=== PATIENT | male | born 1965 ===

== ENCOUNTER 2016-09-05 07:37 | Inpatient (IN) | payer OTHER ==
[2016-09-05 07:48] VITALS: BMI 40.3
[2016-09-05] MEDS ORDERED: Sodium Chloride 0.9% 1,000 ML IV STA (08:04)
--- NOTE | 2016-09-05 08:07 | ED PDOC ---
HPI:STROKE - Time Time: 08:00 - Historian Historian: Patient - Chief Complaint Chief Complaint: Weakness, Numbness (right sided face), Difficulty walking, other (vertigo) - Onset Onset: Days (Sunday) - Timing Timing: Constant - Severity of pain Maximum severity:: Mild Severity Current: Mild - Associated Symptoms Associated symptoms:: Numbness (right sided face) - Notes: Notes:: Patient is a 51 year old male presenting to the ED complaining of vertigo x2 day. Patient reports that he feels like the room is spinning. Vertigo is associated with weakness diffuse, loss of balance, nausea, right sided facial numbness, leg leg pain, and left arm pain. Last known well was 2 nights ago. Denies chest pain, vomiting, and abdominal pain. No headache. NIHSS Stroke Scale - Date/Time Evaluation Performed Date Performed: 09/05/16 Time Performed: 08:00 When Was NIHSS Performed: Baseline - How Severe is the Stroke Level of Consciousness: 0=Alert LOC to Questions: 0=Both comments correct LOC to commands: 0=Obeys both correctly Best Gaze: 0=Normal Visual: 0=No visual loss Facial: 0=Normal Motor Arm - Left: 0=No drift Motor Arm - Right: 0=No drift Motor Leg - Left: 0=No drift Motor Leg - Right: 0=No drift Limb Ataxia: 0=Absent Sensory: 0=Normal Best Language: 0=No aphasia Dysarthia: 0=Normal articulation Extinction & Inattention (Neglect): 0=Normal, no object Score: 0 rTPA Inclusion/Exclusion - Refusal of Treatment Patient Refused Treatment: No - Inclusion Criteria for Altepase Patient is 18 years or Older: Yes The Clinical Diagnosis of Ischemic Stroke That is Causing a Potentially Disabling Neurological Deficit: No Time of Onset is Well Established to be Less Than 270 Minute Before Treatment Would Begin: No Risk/Benefit Discussed With Patient/Family Member Present: Yes Past Medical History Reviewed: Historical Data, Nursing Documentation, Vital Signs Vital Signs: Last Vital Signs Temp 98 F 09/05/16 07:47 Pulse 86 09/05/16 07:47 Resp BP 181/102 H 09/05/16 07:47 Pulse Ox 99 09/05/16 07:47 - Medical History PMH: Diabetes, HTN, Hyperlipidemia - Family History Family History: States: Unknown Family Hx - Allergies Allergies/Adverse Reactions: Allergies Allergy/AdvReac Type Severity Reaction Status Date / Time No Known Allergies Allergy Verified 09/05/16 07:56 Review of Systems ROS Statement: Except As Marked, All Systems Reviewed And Found Negative Constitutional: Positive for: Weakness, Other (loss of balance) Cardiovascular: Negative for: Chest Pain Gastrointestinal: Positive for: Nausea. Negative for: Vomiting, Abdominal Pain Neurological: Positive for: Weakness, Numbness (right sided facial ), Dizziness , Other (vertigo) Physical Exam - Reviewed Nursing Documentation Reviewed: Yes Vital Signs Reviewed: Yes - Physical Exam Appears: Positive for: Well, Non-toxic, No Acute Distress Head Exam: Positive for: ATRAUMATIC, NORMAL INSPECTION, NORMOCEPHALIC Skin: Positive for: Normal Color, Warm, DRY Eye Exam: Positive for: EOMI, Normal appearance, PERRL ENT: Positive for: Normal ENT Inspection. Negative for: Nasal Congestion Neck: Positive for: Normal, Painless ROM, Supple Cardiovascular/Chest: Positive for: Regular Rate, Rhythm. Negative for: Edema, Gallop, Murmur Respiratory: Positive for: Normal Breath Sounds. Negative for: Accessory Muscle Use, Rhonchi, Respiratory Distress Gastrointestinal/Abdominal: Positive for: Bowel Sounds, Soft. Negative for: Tenderness Back: Positive for: Normal Inspection. Negative for: L CVA Tenderness, R CVA Tenderness Extremity: Positive for: Normal ROM. Negative for: Tenderness, Pedal Edema Neurologic/Psych: Positive for: Alert, circular ripsaw operator II-XII (intact), Oriented, Facial Droop (none). Negative for: Motor/Sensory Deficits, Aphasia - Laboratory Results Result Diagrams: 09/05/16 08:21 09/05/16 08:21 Interpretation Of Abn Labs: 335 glucose - ECG ECG: Positive for: Interpreted By Me, Viewed By Me ECG Rhythm: Positive for: Nonspecific Changes O2 Sat by Pulse Oximetry: 99 (RA) Pulse Ox Interpretation: Normal - Radiology X-Ray: Interpreted by Me, Viewed By Me X-Ray Interpretation: No Acute Disease - CT Scan/US ct Other Rad Studies (CT/US): Read By Radiologist Other Rad Interpretation: no acute - Progress ED Course And Treament: 1130: Stable. AAOx3. Pain free. 1214: Spoke with Dr. Pablo will will admit. Spoke with Dr. Mcclain. Will Consult. No additional tx then ASA. Further stroke eval needed. Medical Decision Making Medical Decision Making: Time: 8:00 Impression: possible stroke/CVA Plan: Blood Type and Screen CT Head EKG CMP Hemoglobin A1C stat Lipid Panel Troponin CBC PTT/PT CXR Antivert 25 mg PO IVF Glucose POC Stat Scribe Attestation: Documented by William Suero acting as a scribe for Abhinav French MD. Scribe Attestation: All medical record entries made by the Scribe were at my direction and personally dictated by me. I have reviewed the chart and agree that the record accurately reflects my personal performance of the history, physical exam, medical decision making, and the department course for this patient. I have also personally directed, reviewed, and agree with the discharge instructions and disposition. Disposition - Clinical Impression Clinical Impression: Cerebrovascular accident (CVA), Hyperglycemia - Patient ED Disposition Is Patient to be Admitted: Yes Counseled Patient/Family Regarding: Studies Performed, Diagnosis - Disposition Disposition Time: 12:15 Condition: FAIR - Pt Status Changed To: Hospital Disposition Of: Observation - POA Present On Arrival: Poor Glycemic Control
[2016-09-05 08:30] LABS: BASO % 0.5 % (0.0-2.0); EOS % 0.1 % (0.0-4.0); HEMATOCRIT 43.8 % (35.0-51.0); LYMPH # 1.1 K/uL (1.0-4.3); LYMPH % 12.9 % (20.0-40.0); MEAN CELL VOLUME 87.8 fl (80.0-94.0); MEAN CORPUSCULAR HEMOGLOBIN 28.8 pg (27.0-31.0); MEAN CORPUSCULAR HGB CONC 32.8 g/dL (33.0-37.0); MEAN PLATELET VOLUME 9.7 fl (7.2-11.7); MONO # 0.4 K/uL (0.0-0.8); MONO % 4.4 % (0.0-10.0); NEUT # 6.8 K/uL (1.8-7.0); NEUT % 82.1 % (50.0-75.0); NRBC % 0.1 % (0.0-0.0); RED CELL DISTRIBUTION WIDTH 13.7 % (11.5-14.5); WHITE BLOOD COUNT 8.2 K/uL (4.8-10.8)
[2016-09-05 08:36] LABS: ALB/GLOB RATIO 1.3 (1.0-2.1); ALKALINE PHOSPHATASE 121 U/L (38-126); ALT/SGPT 77 U/L (21-72); AST/SGOT 52 U/L (17-59); BILIRUBIN,TOTAL 1.2 mg/dl (0.2-1.3); BLOOD UREA NITROGEN 18 mg/dl (9-20); CALCIUM 9.3 mg/dL (8.4-10.2); CARBON DIOXIDE 20 mmol/L (22-30); CHLORIDE 104 mmol/L (98-107); CHOLESTEROL 224 mg/dL (0-199); GFR AFRICAN-AMERICAN > 60; GLUCOSE,RANDOM 335 mg/dL (75-110); SODIUM 141 mmol/l (132-148); TOTAL PROTEIN 8.1 G/DL (6.3-8.2)
[2016-09-05 08:55] LABS: PARTIAL THROMBOPLASTIN TIME 23.1 SECONDS (23.3-32.5); POTASSIUM 4.4 MMOL/L (3.6-5.0)
--- NOTE | 2016-09-05 09:04 | CT ---
PROCEDURE: CT HEAD WITHOUT CONTRAST. HISTORY: cva eval COMPARISON: None available. TECHNIQUE: Axial computed tomography images were obtained through the head/brain without intravenous contrast. Radiation dose: Total exam DLP = 779.46 mGy-cm. FINDINGS: HEMORRHAGE: No intracranial hemorrhage. BRAIN: No mass effect or edema. Minimal diffuse atrophy consistent with patient age. No evidence of acute infarct. No evidence of chronic white matter ischemic change. Incidental flattening of the pituitary along the floor of the sella turcica, so-called "Empty sella ". VENTRICLES: Incidental cavum septum pellucidum. No ventriculomegaly. CALVARIUM: Unremarkable. PARANASAL SINUSES: Unremarkable as visualized. No significant inflammatory changes. MASTOID AIR CELLS: Unremarkable as visualized. No inflammatory changes. OTHER FINDINGS: None. IMPRESSION: No evidence of acute infarct. No intracranial mass or hemorrhage.
--- NOTE | 2016-09-05 13:55 | RAD ---
HISTORY: cva eval COMPARISON: None available. TECHNIQUE: Chest, one view. FINDINGS: LUNGS: No focal consolidation. Please note that chest x-ray has limited sensitivity for the detection of pulmonary masses. PLEURA: No significant pleural effusion identified. No definite pneumothorax . CARDIOVASCULAR: Cardiomegaly. OSSEOUS STRUCTURES: Degenerative changes. VISUALIZED UPPER ABDOMEN: Unremarkable. OTHER FINDINGS: Examination limited by habitus. IMPRESSION: Cardiomegaly.
--- NOTE | 2016-09-05 13:59 | CP.PCM.HP ---
History of Present Illness - History of Present Illness History of Present Illness: 51 y/o male with PMH HTN, dyslipidemia, DM type presented to ER with 1 day history of dizziness, spinning sensation and unsteady gait. He states that this is the first time he is experiencing such dizziness. As per patient first it started yesterday morning upon waking up and trying to get out of bed and continued all day yesterday until this morning so he decided to come to ER. Feeling nauseated , denies any vomiting, fever, chills, recent upper respiratory infection, complains of right nares congestion, denies any tinnitus.Denies any CP, palpitation, SOB, BAXTER. Denies any focal weakness but feels like can not stand on his feet due to dizziness. Allergies:NKDA PMH ; HTN,dyslipidemia, DM Medications; can not remember his medications Surgery; spinal surgery for herniated disc 10 years ago Family history : Mother DM , HTN, Dyslipidemia Social history ; Lives in [place] , from [place] , , works in construction, denies any smoking , ETOH , drug abuse PMD ; Dr. Thomas, [facility];all other review of systems is negative except above Present on Admission - Present on Admission Any Indicators Present on Admission: No Review of Systems - Review of Systems All systems: reviewed and no additional remarkable complaints except Past Patient History - Infectious Disease Hx of Infectious Diseases: None - Tetanus Immunizations Tetanus Immunization: Unknown - Past Medical History & Family History Past Medical History?: Yes Past Family History: Reviewed and not pertinent - Past Social History Smoking Status: Never Smoked Chewing Tobacco Use: No Cigar Use: No Alcohol: None Drugs: Denies Home Situation {Lives}: Alone Domestic Violence: Negative - CARDIAC Hx Hypertension: Yes - HEENT Hx Cataracts: Yes (right eye) - ENDOCRINE/METABOLIC Hx Diabetes Mellitus Type 2: Yes Other/Comment: dyslipidemia - HEMATOLOGICAL/ONCOLOGICAL Hx Blood Disorders: No - INTEGUMENTARY Hx Dermatological Problems: No - MUSCULOSKELETAL/RHEUMATOLOGICAL Hx Musculoskeletal Disorders: No - GASTROINTESTINAL Hx Gastrointestinal Disorders: No - GENITOURINARY/GYNECOLOGICAL Hx Genitourinary Disorders: No - PSYCHIATRIC Hx Psychophysiologic Disorder: No - SURGICAL HISTORY Hx Surgeries: Yes Other/Comment: back surgery Meds Allergies/Adverse Reactions: Allergies Allergy/AdvReac Type Severity Reaction Status Date / Time No Known Allergies Allergy Verified 09/05/16 07:56 Physical Exam - Constitutional Appears: Non-toxic, No Acute Distress, Other (obese) - Head Exam Head Exam: ATRAUMATIC, NORMAL INSPECTION, NORMOCEPHALIC - Eye Exam Eye Exam: PERRL Pupil Exam: NORMAL ACCOMODATION Additional comments: right eye cataract - ENT Exam ENT Exam: Mucous Membranes Moist, Normal Exam - Neck Exam Neck exam: Positive for: Full Rom, Normal Inspection - Respiratory Exam Respiratory Exam: Clear to Auscultation Bilateral, NORMAL BREATHING PATTERN. absent: Rales, Rhonchi, Wheezes - Cardiovascular Exam Cardiovascular Exam: REGULAR RHYTHM, RRR, +S1, +S2. absent: JVD - GI/Abdominal Exam GI & Abdominal Exam: Normal Bowel Sounds, Soft. absent: Distended, Guarding, Rebound, Tenderness - Rectal Exam Rectal Exam: Deferred - Extremities Exam Extremities exam: Positive for: normal capillary refill, normal inspection, pedal pulses present. Negative for: calf tenderness, pedal edema - Back Exam Back exam: NORMAL INSPECTION - Neurological Exam Neurological exam: Alert, CN II-XII Intact, Oriented x3, Reflexes Normal - Psychiatric Exam Psychiatric exam: Normal Affect, Normal Mood - Skin Skin Exam: Dry, Intact, Normal Color, Warm Results - Vital Signs Recent Vital Signs: Last Vital Signs Temp 98 F 09/05/16 07:47 Pulse 86 09/05/16 07:47 Resp BP 181/102 H 09/05/16 07:47 Pulse Ox 99 09/05/16 12:15 - Labs Result Diagrams: 09/05/16 08:21 09/05/16 08:21 - Imaging and Cardiology CT scan - head Additional comment: no acute pathology cxr Additional comment: no acute pathology Assessment & Plan - Assessment and Plan (Free Text) Assessment: 51 y/o male with PMH HTN, dyslipidemia, DM type presented to ER with 1 day history of dizziness, spinning sensation and unsteady gait. He states that this is the first time he is experiencing such dizziness. As per patient first it started yesterday morning upon waking up and trying to get out of bed and continued all day yesterday until this morning so he decided to come to ER. Feeling nauseated , denies any vomiting, fever, chills, recent upper respiratory infection, complains of right nares congestion, denies any tinnitus.Denies any CP, palpitation, SOB, BAXTER. Denies any focal weakness but feels like can not stand on his feet due to dizziness.Ctr heda showed no acute pathology and his symptoms improved after meclizine given Will place patient under observation in telemetry for Vertigo 1.Vertigo- most likely benign positional vertigo , But will need to rule out acute CVA Place in telemetry for observation tele monitoring Neuro checks Q4 hours neurology consult with Dr. Johny Orozco ASa, statin Better control of hypertension and DM Start Meclezine 12.5 mg po BID MRI brain as per neuro 2.Hypertension- uncontrolled resume home meds norvasc and Losartan 3.Dyslipidemia- uncontrolled TG 335 , Ch 224 LDL 106 Star atorvastatin 40 mg po daily 4.DM type II- uncontrolled Accucheck 335 Resoume home meds Amaryl and Metformin accucjhecks with insulin coverage Check Hgb A1c Diabetic diet 5. Obesity BMI 40 will need drafter castings consult 6. DVT prophylaxis Lovenox, SCD
--- NOTE | 2016-09-05 14:26 | CARD ---
APPROVED REPORT EKG Measurement Heart [id number] NE 144P43 [id number] <Conclusion> Normal sinus rhythm ST & T wave abnormality, consider anterolateral ischemia Abnormal ECG
[2016-09-05 14:39] LABS: THYROID STIMULATING HORMONE 0.65 mIU/ML (0.46-4.68)
--- NOTE | 2016-09-05 16:56 | MRI ---
PROCEDURE: MRI BRAIN WITHOUT CONTRAST HISTORY: stroke COMPARISON: Comparison made with CT scan of the brain dated 09/05/2016. TECHNIQUE: Multiplanar, multisequence MR images of the brain were obtained without intravenous contrast enhancement. FINDINGS: HEMORRHAGE: No acute parenchymal, subarachnoid or extra-axial hemorrhage. No evidence of hemosiderin deposition seen on diffusion-weighted sequence. DWI: There is a very tiny elliptical shaped focus of restricted diffusion along the right lateral surface of the cervicomedullary junction best seen on diffusion weighted series 3 axial image number 6 consistent with a tiny acute infarct. Clinical correlation recommended. BRAIN PARENCHYMA: There appears to be some minimal chronic periventricular white matter ischemic changes with a few tiny chronic lacunar-type infarcts scattered about the deep and subcortical white matter both cerebral hemispheres. VENTRICLES: Ventricular and sulcal size are normal. No evidence hydrocephalus. Incidental note again made of septum cavum pellucidum and vergae CRANIUM: Calvarium is unremarkable. ORBITS: Orbits and contents normal. PARANASAL SINUSES/MASTOIDS: Clear VASCULAR SYSTEM: Visualized major vascular flow voids at skull base are patent. OTHER FINDINGS: None. IMPRESSION: There is very tiny acute infarct along the right lateral surface of the cervicomedullary junction as described. No evidence of acute intracranial hemorrhage. Findings discussed with Dr. French approximately 4:54 p.m. with written down and read back verification.
[2016-09-05] MEDS ORDERED: Pneumococcal 23-Valent Vaccine IM ONE (17:38)
[2016-09-05] MEDS ORDERED: Influenza Vaccine(5yr & older) 0.5 ML/45 MCG IM ONE (17:38)
[2016-09-05] MEDS: Insulin Lispro (humaLOG) 100 Units/ml Inj SC SCH ×2 (17:49→22:01)
[2016-09-05 18:17] LABS: FOLATE 16.5 ng/mL
--- NOTE | 2016-09-05 20:38 | CON ---
DATE: 09/05/2016 REASON FOR THE CONSULTATION: Left-sided weakness. CHIEF COMPLAINT: The patient was brought in to [facility] with a history of more th an 24-hour period of dizziness and leg weakness, more on his left side. No similar episodes had happ ened. From neurological point of view, I was called in to evaluate him for further management. 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 Known history of hypertension, diabetes mellitus, and dyslipide xavier, woke up with spinning head. This episode not associating with nausea or vomiting. However, he admits to losing his balance, mostly on his left than his right side. From the history, he stated th at right-sided facial numbness. This episode was persistent; that decided him to come to the [facility] for further evaluation. PAST MEDICAL HISTORY: As stated above. PERSONAL HISTORY: Denies smoking or alcohol use. ALLERGIES: No known allergies. MEDICATIONS: Aspirin, Cozaar, Glucophage, Glucotrol, insulin, Lovenox, Norvasc, Tylenol p.r.n. VITAL SIGNS: Blood pressure 142/85, mean arterial pressure of 104, respiratory rate 16, temperature afebrile. NECK: Supple. No carotid bruit. HEART SOUNDS: Regular. CHEST: Fair air entry. EXTREMITIES: No edema in legs. Legs are not externally rotated. NEUROLOGICAL EXAMINATION: MENTAL STATE EXAMINATION: The patient is awake, alert, oriented to person, place, and time. Speech is clear. Naming, repetition, fluency, comprehension are normal. No right and left confusion. CRANIAL NERVE EXAMINATION: Visual field intact. Pupils reactive to light, extraocular movement norm al, no nystagmus. No facial sensory deficit, no facial asymmetry. Hearing is normal. Tongue is mid line. Good gag. MOTOR EXAMINATION: Outstretched hands with eyes closed, no drift noted. Power is symmetric on eithe r side. DEEP TENDON REFLEXES: Biceps, brachioradialis, triceps 1+, both knees are absent, both ankles are ab sent. Plantars are downgoing. SENSORY EXAMINATION: Grossly intact, mild sensory motor neuropathy. COORDINATION: [place]-pcgz-[id number] test is intact. GAIT: Romberg exam negative. Tandem is poor, leaning to his right side. Tandem is poor. CONCLUSION: The patient is presenting with subacute process of lower brainstem dysfunction manifesti ng with a toxic hemiparesis affecting his left than his right side, with the preceding symptoms of ve rtigo consistent with a posterior cerebral artery dysfunction. He carries a history of diabetes raphael itus, dyslipidemia, and hypertension, and his obesity, all are the risk factors for his possible stro ke process. WORKUP: CT of the head reviewed by me: No acute pathologies noted. MRI of the brain reviewed showe d diffusion-weighted image restriction noted at right cervicomedullary junction. He also shows some small vessel disease which is chronic in nature. EKG: Normal sinus rhythm. BLOOD WORKUP: WBC 8.2, hemoglobin 14.4, hematocrit 43.8, platelet 200. ESR 16. PT 10.3, INR of 0.9 9, PTT 23.1. Sodium 141, potassium 4.4, chloride 104, bicarbonate 20, BUN 18, creatinine 0.4. GFR m ore than 60. Glucose 335. Cholesterol 224, LDL 106, HDL 44. B12 is 375. TSH is 0.65. Folate is p ending. RECOMMENDATIONS: 1. Carotid Doppler to be done, echocardiogram to be done to rule out cardiogenic source. 2. The patient got to be out of the bed, and physical therapy should be started as early as possible. 3. Weight reduction, blood pressure control, and diabetic control been all discussed with the patient . The patient should have polysomnogram to rule out hidden sleep-related breathing disorder. If so, th at has to be treated appropriately. Extended discussion with him through the ice cream server. The patient will be followed closely while he is in the hospital. Shivam Mcclain MD cc: [id number] TT: 09/05/2016 20:37:26 Confirmation # [id number] Dictation # [id number] jn
[2016-09-06] MEDS: Insulin Lispro (humaLOG) 100 Units/ml Inj SC SCH ×4 (06:30→21:02)
[2016-09-06 08:19] LABS: HEMATOCRIT 41.2 % (35.0-51.0); MEAN CELL VOLUME 87.4 fl (80.0-94.0); MEAN CORPUSCULAR HEMOGLOBIN 28.8 pg (27.0-31.0); RED CELL DISTRIBUTION WIDTH 13.5 % (11.5-14.5); WHITE BLOOD COUNT 6.6 K/uL (4.8-10.8)
[2016-09-06 08:37] LABS: BLOOD UREA NITROGEN 14 mg/dl (9-20); CALCIUM 8.6 mg/dL (8.4-10.2); CARBON DIOXIDE 21 mmol/L (22-30); CHLORIDE 104 mmol/L (98-107); GFR AFRICAN-AMERICAN > 60; GLUCOSE,RANDOM 225 mg/dL (75-110); POTASSIUM 3.9 MMOL/L (3.6-5.0); SODIUM 134 mmol/l (132-148)
[2016-09-06] MEDS: GlipiZIDE 10 mg SR Tab PO SCH ×2 (09:33→17:24)
[2016-09-06] MEDS: Enoxaparin 40 mg Syringe SC SCH (09:34)
[2016-09-06] MEDS: Pantoprazole 40 mg EC Tab PO SCH (09:35)
--- NOTE | 2016-09-06 14:23 | CP.PCM.PN ---
Subjective - Date & Time of Evaluation Date of Evaluation: 09/06/16 Time of Evaluation: 11:00 - Subjective Subjective: Pt seen and examined. Denied having vertigo or dizziness but complained of numbness of the right face. No perceptible facial weakness. Objective - Vital Signs/Intake and Output Vital Signs (last 24 hours): Temp Pulse Resp BP Pulse Ox 97.9 F 78 18 157/99 H 99 09/06/16 12:00 09/06/16 12:00 09/06/16 12:00 09/06/16 12:00 09/06/16 12:00 - Medications Medications: Current Medications Acetaminophen (Tylenol 325mg Tab) 650 mg PO Q6 PRN PRN Reason: Pain, Mild (1-3) Acetaminophen (Tylenol 325mg Tab) 650 mg PO Q6 PRN PRN Reason: Fever >100.4 F Amlodipine Besylate (Norvasc) 10 mg PO DAILY [facility] Last Admin: 09/06/16 09:35 Dose: 10 mg Aspirin (Aspirin Chewable) 81 mg PO DAILY [facility] Last Admin: 09/06/16 09:27 Dose: 81 mg Atorvastatin Calcium (Lipitor) 40 mg PO DAILY [facility] Last Admin: 09/06/16 09:34 Dose: 40 mg Clopidogrel Bisulfate (Plavix) 75 mg PO DAILY [facility] Last Admin: 09/06/16 09:35 Dose: 75 mg Enoxaparin Sodium (Lovenox) 40 mg SC DAILY [facility] PRN Reason: Protocol Last Admin: 09/06/16 09:34 Dose: 40 mg Glipizide (Glucotrol Xl) 10 mg PO BIDWM [facility] Last Admin: 09/06/16 09:33 Dose: 10 mg Insulin Human Lispro (Humalog) 0 units SC [facility] PRN Reason: Protocol Last Admin: 09/06/16 06:30 Dose: 4 units Ketorolac Tromethamine (Toradol) 15 mg IVP Q6 PRN PRN Reason: Pain, moderate (4-7) Ketorolac Tromethamine (Toradol) 30 mg IVP Q6 PRN PRN Reason: Pain, severe (8-10) Last Admin: 09/05/16 18:50 Dose: 30 mg Losartan Potassium (Cozaar) 100 mg PO DAILY [facility] Last Admin: 09/06/16 09:29 Dose: 100 mg Meclizine HCl (Antivert) 12.5 mg PO BID [facility] Last Admin: 09/06/16 09:27 Dose: 12.5 mg Metformin HCl (Glucophage) 1,000 mg PO BID [facility] Last Admin: 09/06/16 09:32 Dose: 1,000 mg Ondansetron HCl (Zofran Inj) 4 mg IVP Q6 PRN PRN Reason: Nausea/Vomiting Pantoprazole Sodium (Protonix Ec Tab) 40 mg PO DAILY [facility] Last Admin: 09/06/16 09:35 Dose: 40 mg - Labs Labs: 09/06/16 07:30 09/06/16 07:30 PT 10.3 SECONDS (9.6-11.2) 09/05/16 08:21 INR 0.99 (0.92-1.08) 09/05/16 08:21 APTT 23.1 SECONDS (23.3-32.5) L 09/05/16 08:21 - Constitutional Appears: No Acute Distress - Head Exam Head Exam: ATRAUMATIC - Eye Exam Eye Exam: PERRL - ENT Exam ENT Exam: Mucous Membranes Moist - Neck Exam Neck Exam: absent: Meningismus - Respiratory Exam Respiratory Exam: absent: Rhonchi, Wheezes, Respiratory Distress - Cardiovascular Exam Cardiovascular Exam: REGULAR RHYTHM, +S1, +S2 - GI/Abdominal Exam GI & Abdominal Exam: Soft. absent: Tenderness - Rectal Exam Rectal Exam: Deferred - Neurological Exam Neurological Exam: Alert, Oriented x3 - Psychiatric Exam Psychiatric exam: Normal Affect - Skin Skin Exam: Dry, Intact Assessment and Plan (1) CVA (cerebral vascular accident) Status: Acute (2) Vertigo Status: Resolved (3) HTN (hypertension) Status: Chronic (4) HLD (hyperlipidemia) Status: Chronic (5) DM2 (diabetes mellitus, type 2) Status: Chronic (6) DVT prophylaxis Status: Acute - Assessment and Plan (Free Text) Assessment: 51 yo male with history of HTN, HLD, DM type 2 admitted because of dizziness and unsteady gait. MRI of the brain showed acute infarct of the right lateral cervicomedullary junction. 1. CVA vertigo was relieved but now has numbness of the right side of the face follow ECHO and Carotid Doppler switch to full admission continue ASA, Plavix, Lipitor and BP control Dr Mcclain on neuro consult 2. Hypertension BP uncontrolled continue Norvasc and Losartan 3. HLD Atorvastatin 40 mg PO HS 4. DM type II BS uncontrolled continue Amaryl and Metformin accuchecks with insulin coverage 6. DVT prophylaxis Lovenox, SCD
--- NOTE | 2016-09-06 18:28 | PN ---
DATE: 09/06/2016 NEUROLOGICAL PROBLEM: Ataxic hemiparesis with acute infarction over the right cervical medullary piyush ction, probably small vessel disease. VITAL SIGNS: Blood pressure 154/91, mean arterial pressure of 112, respiratory rate 20, temperature 98.4, pulse rate 77. The patient is more awake, alert, oriented to person, place, and time. He denies any new weakness, h owever, he is still complaining of losing his balance in his both legs. His workup is completed. I would like to review his echo. 1. The patient should get physical therapy. He is a good candidate for acute rehabilitation. 2. Medications should be continued for his blood pressure, maintain the mean arterial pressure aroun d 100. 3. Diabetic control. 4. Antiplatelets and statin should be continued. The patient should have polysomnogram to rule out sleep-related breathing disorder, which can be done as outpatient. Shivam Mcclain MD cc: [id number] TT: 09/06/2016 18:27:00 Confirmation # [id number] Dictation # [id number]
[2016-09-07 08:12] VITALS: RESP 18; TEMP 98.7
[2016-09-07] MEDS: GlipiZIDE 10 mg SR Tab PO SCH (08:26)
[2016-09-07] MEDS: Pantoprazole 40 mg EC Tab PO SCH (08:26)
[2016-09-07] MEDS: Enoxaparin 40 mg Syringe SC SCH (08:27)
[2016-09-07] MEDS: Insulin Lispro (humaLOG) 100 Units/ml Inj SC SCH ×2 (08:28→11:49)
[2016-09-07 12:32] VITALS: BP 155/102; PULSE 81; O2SAT 98
--- NOTE | 2016-09-07 12:34 | CP.PCM.DIS ---
Provider - Provider Date of Admission: 09/06/16 14:20 Attending physician: Rhea aPblo MD Consults: Dr Mcclain Time Spent in preparation of Discharge (in minutes): 35 Diagnosis - Discharge Diagnosis (1) CVA (cerebral vascular accident) Status: Acute Comment: continue ASA, Plavix and Lipitor. also need better control of BP (2) Vertigo Status: Resolved (3) HTN (hypertension) Status: Chronic (4) HLD (hyperlipidemia) Status: Chronic (5) DM2 (diabetes mellitus, type 2) Status: Chronic (6) DVT prophylaxis Status: Acute Hospital Course - Lab Results Lab Results: Most Recent Lab Values WBC 6.6 K/uL (4.8-10.8) 09/06/16 07:30 RBC 4.71 Mil/uL (4.40-5.90) 09/06/16 07:30 Hgb 13.6 g/dL (12.0-18.0) 09/06/16 07:30 Hct 41.2 % (35.0-51.0) 09/06/16 07:30 MCV 87.4 fl (80.0-94.0) 09/06/16 07:30 MCH 28.8 pg (27.0-31.0) 09/06/16 07:30 MCHC 33.0 g/dL (33.0-37.0) 09/06/16 07:30 RDW 13.5 % (11.5-14.5) 09/06/16 07:30 Plt Count 188 K/uL (130-400) 09/06/16 07:30 MPV 9.7 fl (7.2-11.7) 09/05/16 08:21 Neut % (Auto) 82.1 % (50.0-75.0) H 09/05/16 08:21 Lymph % (Auto) 12.9 % (20.0-40.0) L 09/05/16 08:21 [place] % (Auto) 4.4 % (0.0-10.0) 09/05/16 08:21 Eos % (Auto) 0.1 % (0.0-4.0) 09/05/16 08:21 Baso % (Auto) 0.5 % (0.0-2.0) 09/05/16 08:21 Neut # 6.8 K/uL (1.8-7.0) 09/05/16 08:21 Lymph # 1.1 K/uL (1.0-4.3) 09/05/16 08:21 [place] # 0.4 K/uL (0.0-0.8) 09/05/16 08:21 Eos # 0.0 K/uL (0.0-0.7) 09/05/16 08:21 Baso # 0.0 K/uL (0.0-0.2) 09/05/16 08:21 ESR 16 mm/hr (0-15) H 09/05/16 14:30 PT 10.3 SECONDS (9.6-11.2) 09/05/16 08:21 INR 0.99 (0.92-1.08) 09/05/16 08:21 APTT 23.1 SECONDS (23.3-32.5) L 09/05/16 08:21 Sodium 134 mmol/l (132-148) 09/06/16 07:30 Potassium 3.9 MMOL/L (3.6-5.0) 09/06/16 07:30 Chloride 104 mmol/L (98-107) 09/06/16 07:30 Carbon Dioxide 21 mmol/L (22-30) L 09/06/16 07:30 Anion Gap 13 (10-20) 09/06/16 07:30 BUN 14 mg/dl (9-20) 09/06/16 07:30 Creatinine 0.4 mg/dL (0.8-1.5) L 09/06/16 07:30 Est GFR ( Amer) > 60 09/06/16 07:30 Est GFR (Non-Af Amer) > 60 09/06/16 07:30 POC Glucose (mg/dL) 200 mg/dL (65-110) H 09/07/16 05:14 Random Glucose 225 mg/dL (75-110) H 09/06/16 07:30 Hemoglobin A1c 11.5 % (4.2-6.5) H 09/05/16 08:21 Calcium 8.6 mg/dL (8.4-10.2) 09/06/16 07:30 Total Bilirubin 1.2 mg/dl (0.2-1.3) 09/05/16 08:21 AST 52 U/L (17-59) 09/05/16 08:21 ALT 77 U/L (21-72) H 09/05/16 08:21 Alkaline Phosphatase 121 U/L (38-126) 09/05/16 08:21 Troponin I 0.0120 ng/mL (0.00-0.120) 09/05/16 08:21 C-React Prot High Sens 1.48 mg/L (1.00-3.00) 09/05/16 08:30 Total Protein 8.1 G/DL (6.3-8.2) 09/05/16 08:21 Albumin 4.6 g/dL (3.5-5.0) 09/05/16 08:21 Globulin 3.6 gm/dL (2.2-3.9) 09/05/16 08:21 Albumin/Globulin Ratio 1.3 (1.0-2.1) 09/05/16 08:21 Triglycerides 335 mg/DL (0-149) H 09/05/16 08:21 Cholesterol 224 mg/dL (0-199) H 09/05/16 08:21 LDL Cholesterol Direct 106 mg/dL (0-129) 09/05/16 08:21 HDL Cholesterol 44 MG/DL (30-70) 09/05/16 08:21 Vitamin B12 375 pg/mL (239-931) 09/05/16 08:24 Folate 16.5 ng/mL 09/05/16 08:24 TSH 3rd Generation 0.65 mIU/ML (0.46-4.68) 09/05/16 08:24 Blood Type O POSITIVE 09/05/16 08:24 Blood Type Confirm O POSITIVE 09/05/16 14:30 Antibody Screen Negative 09/05/16 08:24 BBK History Checked No verified bt 09/05/16 08:24 - Hospital Course Hospital Course: 51 yo male with history of HTN, HLD and DM2 admitted because of sudden onset of vertigo. MRI showed acute infarct on the right lateral cervicomedullary junction. Aside from numbness on the right side of the face, patient did not have any neurological deficit. He was discharged in stable condition with advised to follow up in the [facility] in 2 weeks. Discharge Exam - Head Exam Head Exam: ATRAUMATIC Discharge Plan - Discharge Medications Prescriptions: Carvedilol [Coreg] 12.5 mg PO Q12 #60 tab Atorvastatin [Lipitor] 40 mg PO DAILY #30 tab Clopidogrel [Plavix] 75 mg PO DAILY #30 tab - Follow Up Plan Condition: FAIR Disposition: HOME/ ROUTINE Instructions: Stroke (DC) Additional Instructions: follow up in [facility] in [place], [place]
--- NOTE | 2016-09-08 11:40 | PQF GENQUE ---
Dr. Pablo consult dated 09/05 documents "toxic hemiparesis." Discharge summary documents "aside of numbness on right side of face pt did not have any neurological deficit." After study did pt present with a diagnosis of hemiparesis? This form is a permanent part of the medical record Patient had only some right side of his face numbness and vertigo Clarification of your documentation is requested to better reflect the severity of illness and intensity of treatment of your patient. Indicators present [] Specify: [] [] Specify: [] [] Specify: [] [] Specify: [] Location in the medical record that reflects the above clinical findings: [x] Consult, Discharge summary Treatment Provided: [] PHYSICIAN'S RESPONSE Based on your medical judgment of the clinical indicators outlined above please clarify the following: [] Practitioner response [] If unable to determine, please check the box, sign and date. Present On Admission (POA) Indicator: [] Present at the time of admission [] Not present at the time of admission [] Clinically Undetermined In responding to this query, please exercise your independent professional judgment. The fact that a question is asked does not imply that any particular answer is desired or expected. Thank you for your clarification on this documentation. If you have any questions please call:[ ] * Thank you, [ ]Ruthann VAIL Coder [place]
== END 2016-09-07 14:05 | disposition home or self-care (01) | DRG 14 ==
LOC: H.ER 07:37 → H.ERHOLD 12:12 → H.TEL 16:36 → OBSVTOIN 09-06 14:20
PROVIDERS: ADMIT Hospitalist; ATTEND Hospitalist
PROC: 3E0234Z Introduction of Serum, Toxoid and Vaccine into Muscle, Percutaneous Approach (ICD-10-PCS; principal; 2016-09-05)
DX: I63.9 Cerebral infarction, unspecified (principal); E11.65 Type 2 diabetes mellitus with hyperglycemia; I10 Essential (primary) hypertension; Z68.41 Body mass index [BMI] 40.0-44.9, adult; H81.10 Benign paroxysmal vertigo, unspecified ear; E66.9 Obesity, unspecified; E78.5 Hyperlipidemia, unspecified; Z23 Encounter for immunization; R20.0 Anesthesia of skin